=== PATIENT | female | born 1950 | race Caucasian/White ===

== ENCOUNTER 2017-08-16 16:11 | Emergency (ER) | payer BC, OTHER ==
[~2017-08-16] VITALS: Ht 165.1 cm; Wt 69.4 kg
[2017-08-16 16:18] VITALS: BP 118/76
== END 2017-08-16 18:10 | disposition home or self-care (01) ==
LOC: ER 16:14
DX: L02.214 Cutaneous abscess of groin (principal); L03.314 Cellulitis of groin; I10 Essential (primary) hypertension
CPT/HCPCS: 10060; 99283; A4606; Z7610

== ENCOUNTER 2019-11-01 16:57 | Emergency (ER) | payer BC, OTHER ==
[~2019-11-01] VITALS: Ht 165.1 cm; Wt 72.6 kg
--- NOTE | 2019-11-01 17:00 | NUR ---
PT BIBRA 79 C/O CHEST PRESSURE STARTED 30 MINS MINIATURE SET CONSTRUCTOR NON RADIATING. PT IS AAOX4, NOT IN RESPIRATORY DISTRESS, HOOKED TO POSTULANT, KEPT RESTED AND COMFORTABLE. WILL CONTINUE TO MONITOR.
--- NOTE | 2019-11-01 17:10 | NUR ---
IV LINE ESTABLISHED BLOOD DRAWN AND SENT TO LAB.
--- NOTE | 2019-11-01 17:19 | NUR ---
AT BEDSIDE FOR EVAL.
[2019-11-01 17:32] LABS: BASOPHILS % (AUTO) 0.5 % (0.0-2.0); EOSINOPHILS % (AUTO) 0.5 % (0.0-6.0); HEMATOCRIT 42 % (33-45); HEMOGLOBIN 14.3 g/dL (11.5-14.8); LYMPHOCYTES # (AUTO) 3.3 /CMM (0.8-4.8); LYMPHOCYTES % (AUTO) 32.8 % (20.0-44.0); MEAN CORPUSCULAR HGB CONC 34 g/dl (31.0-36.0); MEAN CORPUSCULAR VOLUME 88 fL (82-100); MONOCYTES # (AUTO) 0.5 /CMM (0.1-1.30); MONOCYTES % (AUTO) 5.3 % (2.0-12.0); NEUTROPHILS # (AUTO) 6.1 /CMM (1.8-8.9); NEUTROPHILS % (AUTO) 60.9 % (43.0-81.0); PLATELET COUNT (AUTO) 373 /CMM (150-450); RED BLOOD CELL COUNT(AUTO) 4.79 MIL/uL (4.0-5.2)
[2019-11-01 17:38] LABS: CALCIUM, SERUM 9.1 mg/dL (8.5-10.1); CARBON DIOXIDE 27 mmol/L (21-32); CHLORIDE 106 mmol/L (98-107); CREATININE 1.1 mg/dL (0.6-1.3); GLUCOSE 106 mg/dL (74-106); POTASSIUM 3.1 mmol/L (3.5-5.1); SODIUM SERUM 142 mmol/L (136-145); UREA NITROGEN, BLOOD 29 mg/dL (7-18)
[2019-11-01] MEDS ORDERED: LOSA1TAB36 MT (17:41)
[2019-11-01] MEDS ORDERED: METO50TA16 MT (17:41)
--- NOTE | 2019-11-01 17:42 | NUR ---
REPAIRER GENERAL AT BEDSIDE FOR XRAY.
[2019-11-01] MEDS ORDERED: PANTOPRAZOLE 40 MG VIAL IV ONE (18:30)
[2019-11-01] MEDS ORDERED: POTASSIUM CHLORIDE 20 MEQ TAB.PRT.SR PO ONE ×2 (18:30→18:40)
[2019-11-01] MEDS ORDERED: PANTOPRAZOLE 40 MG VIAL ONE (18:41)
--- NOTE | 2019-11-01 19:13 | NUR ---
REPORT GIVEN TO DIANA POMPA FOR HILARIO.
--- NOTE | 2019-11-01 19:32 | NUR ---
REPORT RECEIVED FROM MELANIA RN FOR HILARIO
[2019-11-01 21:18] VITALS: BP 129/84
--- NOTE | 2019-11-01 21:18 | NUR ---
Patient discharged to home in stable condition. Written and verbal after care instructions given. Patient verbalizes understanding of instruction.IV removed. Catheter intact and site benign. Pressure and 4x4 applied to site. No bleeding noted.
== END 2019-11-01 21:19 | disposition home or self-care (01) ==
LOC: ER 17:07
DX: R07.89 Other chest pain (principal); R94.31 Abnormal electrocardiogram [ECG] [EKG]; I10 Essential (primary) hypertension; G43.909 Migraine, unspecified, not intractable, without status migrainosus; Z90.49 Acquired absence of other specified parts of digestive tract; Z98.890 Other specified postprocedural states; Z79.899 Other long term (current) drug therapy
CPT/HCPCS: 36415; 71045; 80048; 84484 ×2; 85025; 93005 ×3; 96374; 99285; C9113